=== PATIENT | female | born 1965 | race Caucasian/White ===

== ENCOUNTER 2016-10-26 18:08 | Emergency (ER) ==
[2016-10-26 18:09] VITALS: BMI 38.0
[2016-10-26 18:12] VITALS: BP 144/86; TEMP 97.3
[2016-10-26] MEDS ORDERED: TENIVAC IM ONE (18:20)
[2016-10-26] MEDS ORDERED: LIDOCAINE 1 % AMP 5 ML (SUTURES) SUBCUT STA (18:20)
[2016-10-26 18:42] LABS: SERUM PREGNANCY INTERNAL QC INTERNAL QC VALID
--- NOTE | 2016-10-26 18:51 | ED.PDOC ---
General Stated Complaint: i slipped and fell and hit the curb--i have a cut over the eye Time Seen by Physician: 18:10 Mode of Arrival: Walk-In Information Source: Patient Exam Limitations: No limitations Nursing and Triage Documentation Reviewed and Agree: Yes <CHERISE LEDBETTER - Last Filed: 10/26/16 18:53> <MERISSA RUIZ - Last Filed: 10/26/16 20:11> ED Provider: Dr. MERISSA RUIZ ([facility] (MERISSA RUIZ) Chief Complaint: Fall Primary Care Provider: GEORGES HERNANDEZ ([facility]) (MERISSA RUIZ) Skin Complaint Exam - Laceration/Head/Facial Complaint/Exam Location of Injury: Eyebrow Mechanism of Injury: Laceration Onset/Duration: 4hrs Symptoms Are: Still present Initial Severity: Mild Current Severity: Mild Aggravating: Movement Alleviating: Compression Associated Signs and Symptoms: Denies: Fever, Chills, Erythema, Numbness, Tingling Differential Diagnoses: Laceration <CHERISE LEDBETTER - Last Filed: 10/26/16 18:53> Review of Systems - Review Of Systems Constitutional: Reports: No symptoms Eyes: Reports: No symptoms Ears, Nose, Mouth, Throat: Reports: No symptoms Respiratory: Reports: No symptoms Cardiac: Reports: No symptoms GI: Reports: No symptoms : Reports: No symptoms Musculoskeletal: Reports: No symptoms Skin: Reports: No symptoms Neurological: Reports: No symptoms Endocrine: Reports: No symptoms Hematologic/Lymphatic: Reports: No symptoms All Other Systems: Reviewed and Negative <CHERISE LEDBETTER - Last Filed: 10/26/16 18:53> Past Medical History - Past Medical History Previously Healthy: Yes Endocrine: Reports: None Cardiovascular: Reports: None Respiratory: Reports: None, COPD Hematological: Reports: None Gastrointestinal: Reports: None Genitourinary: Reports: None Neuro/Psych: Reports: Anxiety, Depression Musculoskeletal: Reports: None, Arthritis Cancer: Reports: None Last Menstrual Period: none Other Pertinent Past Medical History: FIBROMYALGA, SOCIAL ANXIETY,CHRONIC FATIGUE - Surgical History General Surgical History: Reports: Orthopedic - Family History Family History: Reports: Unknown - Social History Smoking Status: Current every day smoker, Heavy tobacco smoker Hx Substance Use: No Alcohol Screening: None Lives: With family <CHERISE LEDBETTER - Last Filed: 10/26/16 18:53> Physical Exam - Physical Exam Appearance: Well-appearing, No pain distress, Well-nourished Pain Distress: Mild Eyes: HARSHA, EOMI, Conjunctiva clear ENT: Ears normal, Nose normal, Oropharynx normal Neck: Supple Respiratory: Airway patent Cardiovascular: RRR, Pulses normal, No rub, No murmur GI/: Soft, Nontender, No masses, Bowel sounds normal, No Organomegaly Musculoskeletal: Normal strength, ROM intact, No edema, No calf tenderness Skin: Warm, Dry, Normal color Neurological: Sensation intact, Motor intact, Reflexes intact, Cranial nerves intact, Alert, Oriented Psychiatric: Affect appropriate <CHERISE LEDBETTER Last Filed: 10/26/16 18:53> Interpretation - Radiology Interpretation Radiology Interpretation By: Radiologist Exam Interpreted: CT Scan (rt periorbital hematoma) <MERISSA RUIZ Last Filed: 10/26/16 20:11> Procedures - Laceration/Wound Repair No standard instances Wound Description: Linear Wound Length (cm): 3cm right eyebrow Wound Explored: Clean Wound Irrigated: Yes Wound Prep: Hibiclens Anesthesia: Lidocaine Wound Repaired With: Sutures Suture Size and Type: 5.0 prolene Number of Sutures: 4 Layer Closure?: No Sterile Dressing Applied?: Yes Splint Applied?: No Sling Applied?: No <CHERISE LEDBETTER Last Filed: 10/26/16 18:53> Re-Evaluation - Re-Evaluation Time of Re-Evaluation: 20:09 Status: Improved <MERISSA RUIZ - Last Filed: 10/26/16 20:11> Physician Notification - Case Discussed Physician Notified: dr ruiz Time of Notification: 19:00 <CHERISE LEDBETTER - Last Filed: 10/26/16 18:53> Critical Care Note - Critical Care Note Total Time (mins): 0 <MERISSA RUIZ - Last Filed: 10/26/16 20:11> Departure <CHERISE LEDBETTER - Last Filed: 10/26/16 18:53> - Departure Time of Disposition: 20:11 Pt referred to PMD for follow-up: Yes Disposition Discussed With: Patient, Family <MERISSA RUIZ - Last Filed: 10/26/16 20:11> - Departure Disposition: HOME SELF-CARE Discharge Problem: Head injury Qualifiers: Encounter type: initial encounter Qualifier Code: (S09.90XA) Unspecified injury of head, initial encounter Instructions: Head Injury (ED) Condition: Stable Additional Instructions: eye movements intact and no pain while moving them Tylenol prn If the pain in the eye starts or vision changes needs f/u with eye doctor Allergies/Adverse Reactions: Allergies No Known Allergies Allergy (Verified 10/26/16 18:13) Home Medications: Ambulatory Orders Lorazepam [Ativan] 1 mg PO TID PRN 06/10/15 Tiotropium [place] [Spiriva] 1 cap IA DAILY 12/30/15 Albuterol Sulfate [Proair Hfa] 2 puff IH Q6H 01/05/16 Epinephrine [Epipen Twinpak] 0.3 mg IM DIRECTED PRN 01/05/16 Diclofenac Sodium [Voltaren-Xr] 75 mg PO BID 02/22/16 Venlafaxine HCl [Effexor Xr] 150 mg PO BID 08/29/16
[2016-10-26] MEDS ORDERED: ZOFRAN 4 MG/2 ML IM STA (19:04)
--- NOTE | 2016-10-26 19:35 | CT ---
EXAM: CT of the head without contrast. HISTORY: Head injury. COMPARISON: 01/06/2016 MRI. TECHNIQUE: Noncontrast CT of the head. FINDINGS: There are mild artifacts inferiorly. No intracranial hemorrhage or mass effect is identified. The s ulci and ventricles are normal in size and configuration. No large area of guidry white matter differe ntiation loss is seen. The calvarium is intact. The visualized paranasal sinuses are unopacified. Right periorbital soft tissue swelling and a few punctate foci of subcutaneous gas are seen. IMPRESSION: No evidence of an acute intracranial process. Right periorbital soft tissue swelling and a few punctate foci of subcutaneous gas.
--- NOTE | 2016-10-26 19:40 | CT ---
CT cervical spine without contrast HISTORY: Fall with trauma and pain TECHNIQUE: CT of the cervical spine with multiplanar reformations. FINDINGS: Reformatted images demonstrate normal alignment with preservation of vertebral body heigh t. Focal disc space narrowing and endplate spondylosis at C5-6. No fracture seen on the axial or re formatted images. No acute surrounding soft tissue abnormalitites. Lung apices are clear. IMPRESSION: No acute findings in the cervical spine.
--- NOTE | 2016-10-26 19:42 | CT ---
EXAM: Noncontrast CT of the facial bones HISTORY: Fall COMPARISON: None available TECHNIQUE: Noncontrast CT of the facial bones. FINDINGS: The most inferior aspect the mandible was not entirely imaged. No facial bone fracture is identifie d. The paranasal sinuses are opacified. Right periorbital soft tissue swelling, mild hematoma and a few punctate foci of subcutaneous gas are seen. The globes are unremarkable. There is mild anteri or subluxation of the right mandibular condyle at the TMJ. IMPRESSION: No facial bone fracture identified. Right periorbital mild soft tissue swelling, hematoma and a few punctate foci of subcutaneous gas. Mild anterior subluxation of the right mandibular condyle of the TMJ, possibly positional. Clinical correlation suggested.
== END 2016-10-26 20:21 | disposition home or self-care (01) ==
LOC: ED 18:08
DX: S01.111A Laceration without foreign body of right eyelid and periocular area, initial encounter (principal); S09.90XA Unspecified injury of head, initial encounter; W01.198A Fall on same level from slipping, tripping and stumbling with subsequent striking against other object, initial encounter; F17.210 Nicotine dependence, cigarettes, uncomplicated
CPT/HCPCS: 36415; 84703; 90471; 96372; 99283

== ENCOUNTER 2017-01-22 14:53 | Emergency (ER) ==
[2017-01-22 15:03] VITALS: BP 92/74; TEMP 98; BMI 21.4
[2017-01-22] MEDS ORDERED: DECADRON 4 MG/ML SDV IM STA (15:20)
--- NOTE | 2017-01-22 15:23 | ED.PDOC ---
General ED Provider: Dr. MERISSA RUIZ Chief Complaint: Ankle Pain/Injury Stated Complaint: She woke up with rt ankle red, swollen 4 days ago, but gradually the redness got better now it is still swollen and hurts to walk. Time Seen by Physician: 15:21 Mode of Arrival: Walk-In Information Source: Patient Primary Care Provider: GEORGES HERNANDEZ Nursing and Triage Documentation Reviewed and Agree: Yes Musculoskeletal Complaint Exam - Ankle/Foot Complaint/Exam Location of Injury: Reports: Right Mechanism of Injury: Reports: No known trauma Symptoms Are: Reports: Still present Onset of Pain: Reports: Days Initial Severity: Moderate Current Severity: Moderate Location: Reports: Discrete Character: Reports: Aching, Throbbing Alleviating: Reports: None Aggravating: Reports: Movement, Weight bearing Able to Bear Weight: No Associated Signs and Symptoms: Reports: Swelling, Fever. Denies: Redness, Bruising, Weakness, Numbness, Tingling Gout Risk Factors: Reports: HTN, Obesity Related Surgical History: Reports: None Lower Extremity Findings: Present: Swelling, Erythema, Warmth, Tenderness, Limited range of motion Tenderness: Present: Medial malleolus, Lateral malleolus, Midfoot Differential Diagnosis: Cellulitis, Infection, Closed Fracture, Gout, Sprain Review of Systems - Review Of Systems Constitutional: Reports: No symptoms Eyes: Reports: No symptoms Ears, Nose, Mouth, Throat: Reports: No symptoms Respiratory: Reports: No symptoms Cardiac: Reports: No symptoms GI: Reports: No symptoms : Reports: No symptoms Musculoskeletal: Reports: Gout, Joint pain, Joint swelling, Muscle pain Skin: Reports: No symptoms Neurological: Reports: No symptoms Endocrine: Reports: No symptoms Hematologic/Lymphatic: Reports: No symptoms All Other Systems: Reviewed and Negative Past Medical History - Past Medical History Previously Healthy: Yes Endocrine: Reports: None Cardiovascular: Reports: None Respiratory: Reports: None, COPD Hematological: Reports: None Gastrointestinal: Reports: None Genitourinary: Reports: None Neuro/Psych: Reports: Anxiety, Depression Musculoskeletal: Reports: None, Arthritis Cancer: Reports: None Last Menstrual Period: N/A Other Pertinent Past Medical History: FIBROMYALGA, SOCIAL ANXIETY,CHRONIC FATIGUE - Surgical History General Surgical History: Reports: Orthopedic - Family History Family History: Reports: Unknown - Social History Smoking Status: Current every day smoker, Heavy tobacco smoker, Light tobacco smoker Smoking Cessation Counseling Time: > 3 min - 10 min Hx Substance Use: No Alcohol Screening: Occasionally - Immunizations Tetanus Shot up to Date: Yes Physical Exam - Physical Exam Appearance: Ill-appearing, Obese Eyes: EOMI ENT: Ears normal, Nose normal, Oropharynx normal Respiratory: Airway patent, Breath sounds clear, Breath sounds equal, Respirations nonlabored Cardiovascular: RRR, Pulses normal, No rub, No murmur GI/: Soft, Nontender, No masses, Bowel sounds normal, No Organomegaly Musculoskeletal: Limited ROM, Limited strength Skin: Warm, Dry, Normal color Neurological: Sensation intact, Motor intact, Reflexes intact, Cranial nerves intact, Alert, Oriented Psychiatric: Affect appropriate, Mood appropriate Interpretation - Radiology Interpretation Radiology Interpretation By: ED Physician Radiology Results: Negative Exam Interpreted: CXR Critical Care Note - Critical Care Note Total Time (mins): 0 Course - Course Orders, Labs, Meds: Orders Category Date Time Status Dexamethasone 4 mg/ml Inj [Decadron 4 mg/ml Sdv] MEDS 01/22/17 15:20 Discontinued 4 mg IM ONCE STA ANKLE, RIGHT MIN 3 VIEWS Stat RADS 01/22/17 15:20 Taken Medications Discontinued Medications Generic Name Dose Route Start Last Admin Trade Name Freq PRN Reason Stop Dose Admin Dexamethasone Sodium Phosphate 4 mg 01/22/17 15:20 01/22/17 15:25 Decadron 4 Mg/Ml Sdv IM 01/22/17 15:21 4 mg ONCE STA Administration Vital Signs: Temp Pulse Resp BP Pulse Ox 01/22/17 14:53 98.0 F 83 18 92/74 97 Departure - Departure Time of Disposition: 16:03 Disposition: HOME SELF-CARE Discharge Problem: Cellulitis Qualifiers: Site of cellulitis: extremity Site of cellulitis of extremity: lower extremity Laterality: right Qualifier Code: (L03.115) Cellulitis of right lower limb Acute gout Qualifiers: Gout site: ankle Gout etiology: unspecified cause Laterality: right Qualifier Code: (M10.9) Gout, unspecified Instructions: Cellulitis (ED), Gout (ED) Condition: Stable Pt referred to PMD for follow-up: Yes Additional Instructions: keep leg elevated keep f/u with PMD Prescriptions: Clindamycin HCl 300 mg PO TID #15 capsule Prednisone 10 mg PO BIDWM #14 tablet Allergies/Adverse Reactions: Allergies wasp venom Adverse Reaction (Severe, Uncoded 01/22/17 15:04) Difficulty Breathing Home Medications: Ambulatory Orders Lorazepam [Ativan] 1 mg PO TID PRN 06/10/15 Tiotropium [place] [Spiriva] 1 cap IA DAILY 12/30/15 Albuterol Sulfate [Proair Hfa] 2 puff IH Q6H 01/05/16 Epinephrine [Epipen Twinpak] 0.3 mg IM DIRECTED PRN 01/05/16 Venlafaxine HCl [Effexor Xr] 150 mg PO BID 08/29/16 Clindamycin HCl 300 mg PO TID #15 capsule 01/22/17 Prednisone 10 mg PO BIDWM #14 tablet 01/22/17 Disposition Discussed With: Patient
[2017-01-22] MEDS ORDERED: CLEOCIN PO STA (16:05)
--- NOTE | 2017-01-22 16:09 | DI ---
EXAM: Right ankle. Three view. HISTORY: Right ankle pain. COMPARISON: None. FINDINGS: AP, lateral and oblique views of the right ankle. There are no acute or healing fracture s. There are no lytic or blastic lesions. Soft tissue edema is noted. There is a large plantar spu r. The talar dome is intact. IMPRESSION: 1. No acute fracture. 2. Soft tissue edema. 3. Plantar spur.
== END 2017-01-22 16:13 | disposition home or self-care (01) ==
LOC: ED 14:53
DX: L03.115 Cellulitis of right lower limb (principal); M10.9 Gout, unspecified; I10 Essential (primary) hypertension; E66.9 Obesity, unspecified; F17.210 Nicotine dependence, cigarettes, uncomplicated; Z79.899 Other long term (current) drug therapy
CPT/HCPCS: 96372; 99283

== ENCOUNTER 2017-02-14 10:16 | Emergency (ER) ==
[2017-02-14 10:35] VITALS: BP 126/84; TEMP 98.6; BMI 38.0
--- NOTE | 2017-02-14 11:26 | ED.PDOC ---
General ED Provider: Dr. SERGIO PAN JR Chief Complaint: Non-specific Complaint Stated Complaint: PATIENT WAS SEEN IN THE [facility] YESTERDAY FOR THIS PROBLEM. STATES SHE IS BEING TREATED FOR CELLULITIS. PATIENT C/O PAIN TO ARCHES AND HEELS OF FEET. STATES KNEES ARE SWOLLEN. PATIENT'S LOWER EXT. HAVE MULTIPLE SCRATCHES BUT SKIN COLOR AND TEMP IS NORMAL. PATIENT STATES COLOR AND TEMP IS BETTER BUT PAIN WORSE IS WORSE. PATIENT STATES "IT LOOKS GREAT BUT IS PAINFUL." PATIENT WAS ORIGINALLY SEEN IN THIS ER AND [facility] FOR THIS PROBLEM AND TWICE AT THE CLINIC. THE CLINIC MADE APPOINTMENT WITH A VASCULAR SURGEON FOR TODAY BUT PATIENT STATED SHE WAS UNABLE TO GO. NOW HAS APPOINTMENT ON February[ End ][facility]. STATES SHE DID NOT TAKE THE ADVIL BECAUSE IT HELPS THE SWELLING AND "I WANTED YOU TO SEE WHAT THEY LOOK LIKE."[ End ] Time Seen by Physician: 11:27 Mode of Arrival: Walk-In Information Source: Patient Exam Limitations: No limitations Primary Care Provider: GEORGES HERNANDEZ Nursing and Triage Documentation Reviewed and Agree: No Review of Systems - Review Of Systems Constitutional: Reports: Malaise Eyes: Reports: No symptoms Ears, Nose, Mouth, Throat: Reports: No symptoms Respiratory: Reports: No symptoms Cardiac: Reports: No symptoms, Edema GI: Reports: No symptoms : Reports: No symptoms Musculoskeletal: Reports: Joint pain, Muscle pain Skin: Reports: Lesions, Rash Neurological: Reports: No symptoms Endocrine: Reports: No symptoms Hematologic/Lymphatic: Reports: No symptoms All Other Systems: Other Past Medical History - Past Medical History Previously Healthy: Yes Endocrine: Reports: None, Dyslipidemia Cardiovascular: Reports: None Respiratory: Reports: COPD Hematological: Reports: None Gastrointestinal: Reports: GERD Genitourinary: Reports: None Neuro/Psych: Reports: Migraine (cluster headaches ), Anxiety, Depression, Bipolar Disorder Musculoskeletal: Reports: None, Arthritis Cancer: Reports: None Last Menstrual Period: N/A Other Pertinent Past Medical History: FIBROMYALGA, SOCIAL ANXIETY,CHRONIC FATIGUE - Surgical History General Surgical History: Reports: Orthopedic (LEFT KNEE SURGERY, ), Other ( 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, wisdom teethremoved, hemorrhoid surgery cluster headaches chol copd gerd depr anx bip) - Family History Family History: Reports: Unknown - Social History Smoking Status: Current every day smoker, Heavy tobacco smoker, Light tobacco smoker Hx Substance Use: No Alcohol Screening: Occasionally Physical Exam - Physical Exam Appearance: Ill-appearing Eyes: HARSHA, EOMI, Conjunctiva clear ENT: Ears normal, Nose normal, Oropharynx normal Neck: Supple Respiratory: Airway patent, Breath sounds clear, Breath sounds equal, Respirations nonlabored Cardiovascular: RRR, Pulses normal, No rub, No murmur GI/: Soft, Nontender, No masses, Bowel sounds normal, No Organomegaly Musculoskeletal: Edema Skin: Warm, Dry Neurological: Sensation intact, Motor intact, Alert, Oriented Psychiatric: Affect appropriate, Mood appropriate Critical Care Note - Critical Care Note Total Time (mins): 0 Course - Course Vital Signs: Temp Pulse Resp BP Pulse Ox 02/14/17 10:17 98.6 F 92 H 16 126/84 95 Departure - Departure Time of Disposition: 11:44 Disposition: HOME SELF-CARE Discharge Problem: Pruritic rash, Cellulitis Instructions: Cellulitis (ED), Peripheral Vascular Disease (ED) Condition: Good Pt referred to PMD for follow-up: Yes Additional Instructions: follow up vascular surgery as planned elevate feet 2 hours twice a day ibuprofen for pain and swelling would change from antibacterial ointment to desitin for skin irritation may try Vitamin A&D ointment instead of desitin ointment call PMD if fever over 101.0 or if worse follow up Monday as planned Prescriptions: Ibuprofen [Motrin] 600 mg PO QID PRN #30 tablet PRN Reason: PAIN Zinc Oxide [Desitin] 1 applic TP BID PRN #120 cream..g. PRN Reason: irritation Allergies/Adverse Reactions: Allergies latex Adverse Reaction (Verified 02/14/17 10:36) wasp venom Adverse Reaction (Severe, Uncoded 01/22/17 15:04) Difficulty Breathing TAPE Adverse Reaction (Uncoded 02/14/17 10:36) Home Medications: Ambulatory Orders Tiotropium [place] [Spiriva] 1 cap IA DAILY 12/30/15 Albuterol Sulfate [Proair Hfa] 2 puff IH Q6H 01/05/16 Epinephrine [Epipen Twinpak] 0.3 mg IM DIRECTED PRN 01/05/16 Venlafaxine HCl [Effexor Xr] 150 mg PO BID 08/29/16 Baclofen 10 mg PO TID 02/14/17 Ibuprofen [Motrin] 600 mg PO QID PRN #30 tablet 02/14/17 Levofloxacin [Levaquin] 500 mg PO QDAC 02/14/17 Zinc Oxide [Desitin] 1 applic TP BID PRN #120 cream..g. 02/14/17
== END 2017-02-14 12:22 | disposition home or self-care (01) ==
LOC: ED 10:16
DX: L03.116 Cellulitis of left lower limb (principal); L03.115 Cellulitis of right lower limb; R21 Rash and other nonspecific skin eruption; L29.9 Pruritus, unspecified; M79.672 Pain in left foot; M79.671 Pain in right foot; F17.210 Nicotine dependence, cigarettes, uncomplicated
CPT/HCPCS: 99282

== ENCOUNTER 2017-10-14 17:55 | Emergency (ER) ==
[2017-10-14 17:55] VITALS: BMI 38.0
[2017-10-14 18:01] VITALS: BP 164/102; TEMP 98.7
[2017-10-14] MEDS ORDERED: DUONEB NEB STA (18:13)
[2017-10-14] MEDS ORDERED: SOLU-MEDROL 125 MG IVP STA (18:14)
[2017-10-14] MEDS ORDERED: SOLU-MEDROL 40 MG IVP STA (18:20)
--- NOTE | 2017-10-14 18:36 | ED.PDOC ---
General <CHERISE LEDBETTER - Last Filed: 10/14/17 21:05> Stated Complaint: SHORTNESS OF BREATH Time Seen by Physician: 18:00 Mode of Arrival: Walk-In Information Source: Patient Exam Limitations: No limitations Nursing and Triage Documentation Reviewed and Agree: Yes Reviewed sepsis parameters & appropriate labs ordered?: Yes System Inflammatory Response Syndrome: Not Applicable <BRENDAN BISHOP - Last Filed: 10/17/17 09:59> ED Provider: Dr. BRENDAN BISHOP Chief Complaint: Shortness of Air Sepsis Protocol: For patient's 13 years and over: Temp is 96.8 and below OR 101 and greater Pulse >90 BPM Resp >20/minute Acutely Altered Mental Status Are patient's symptoms suggestive of a new infection, such as: -Pneumonia -Skin, Soft Tissue -Endocarditis -UTI -Bone, Joint Infection -Implantable Device -Acute Abdominal Infection -Wound Infection -Meningitis -Blood Stream Catheter Infection -Unknown Respiratory Complaint Exam - Shortness of Air Complaint/Exam Onset/Duration: 4 DAY Symptoms Are: Still present Timing: Constant Initial Severity: Moderate Current Severity: Moderate Character: Reports: Dyspnea at rest, Dyspnea on exertion, Orthopnea Aggravating: Reports: Deep breaths, URI, Weather Alleviating: Reports: Bronchodilators, Upright position Associated Signs and Symptoms: Reports: Cough, Nasal congestion. Denies: Wheezing, Chest pain with cough, Chest pain, Fever, Chills, Diaphoresis, Dizziness, Calf pain, Calf swelling, Edema, Rapid breathing, Labored breathing, Decreased intake Related History: Reports: Similar episode History of Healthcare-Acquired Pneumonia: No Pulmonary Embolism Risk Factors: Reports: Smoking Pseudomonas Risk Factors: Reports: None Tuberculosis Risk Factors: Reports: None Home Oxygen Use: No Recent Stress Test: No Recent Echo/LV Function: No Respiratory Distress: None Stridor Present: No Tracheal Deviation: No Subcutaneous Emphysema: No Accessory Muscle Use: No Retractions: Not Present Diminished Breath Sounds: Yes (ALL REGIONS) Prolonged Expiratory Phase: Yes Unable to Speak Full Sentences: No Fatigue: No Leg Swelling: No Kevin's Sign Present: No Grunting Respirations: No Kussmaul Respirations: No Differential Diagnoses: CHF, Pneumonia, Bronchitis, URI Quality Indicators for AMI: EKG in 10min. Quality Indicators for Cardiac Chest Pain: EKG in 10min. <BRENDAN BISHOP - Last Filed: 10/17/17 09:59> Review of Systems - Review Of Systems Constitutional: Reports: Malaise, Weakness, Loss of appetite Eyes: Reports: No symptoms Ears, Nose, Mouth, Throat: Reports: No symptoms Respiratory: Reports: Cough, Short of air, Wheezing Cardiac: Reports: No symptoms GI: Reports: No symptoms : Reports: No symptoms Musculoskeletal: Reports: No symptoms Skin: Reports: No symptoms Neurological: Reports: No symptoms Endocrine: Reports: No symptoms Hematologic/Lymphatic: Reports: No symptoms All Other Systems: Reviewed and Negative <DARIOBRENDAN Last Filed: 10/17/17 09:59> Past Medical History - Past Medical History Previously Healthy: Yes Endocrine: Reports: None, Dyslipidemia Cardiovascular: Reports: None Respiratory: Reports: COPD Hematological: Reports: None Gastrointestinal: Reports: GERD Genitourinary: Reports: None Neuro/Psych: Reports: Migraine (cluster headaches ), Anxiety, Depression, Bipolar Disorder Musculoskeletal: Reports: None, Arthritis Cancer: Reports: None Last Menstrual Period: n/a Other Pertinent Past Medical History: FIBROMYALGA, SOCIAL ANXIETY,CHRONIC FATIGUE - Surgical History General Surgical History: Reports: Orthopedic (LEFT KNEE SURGERY, ), Other ( 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, wisdom teethremoved, hemorrhoid surgery cluster headaches chol copd gerd depr anx bip) - Family History Family History: Reports: Unknown - Social History Smoking Status: Current every day smoker, Heavy tobacco smoker, Light tobacco smoker Hx Substance Use: No Alcohol Screening: Occasionally - Immunizations Tetanus Shot up to Date: Yes <DARIOBRENDAN Filed: 10/17/17 09:59> Physical Exam - Physical Exam Appearance: Ill-appearing Eyes: HARSHA, EOMI, Conjunctiva clear ENT: Ears normal, Nose normal, Oropharynx normal Respiratory: Breath sounds diminished, Rhonchi, Wheezes Cardiovascular: RRR, Pulses normal, No rub, No murmur GI/: Soft, Nontender, No masses, Bowel sounds normal, No Organomegaly Musculoskeletal: Normal strength, ROM intact, No edema, No calf tenderness Skin: Warm, Dry, Normal color Neurological: Sensation intact, Motor intact, Reflexes intact, Cranial nerves intact, Alert, Oriented Psychiatric: Affect appropriate, Mood appropriate <DARIOBRENDAN Filed: 10/17/17 09:59> 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 Rate: Tachy Rhythm: Sinus - EKG Interpretation Rate: Tachy (INCOMPLETE RIGHT BUNDLE BRANCH) Rhythm: Sinus Ectopy: None Stuart: NL ST Segment: Normal <BRENDAN BISHOP - Last Filed: 10/17/17 09:59> Re-Evaluation - Re-Evaluation Status: Improved Vital Signs Stable: Yes Pain Level: 1 Lungs: Clear Skin: Warm and Dry Neuro: Alert and Oriented X3 CV: RRR <ANATOLYCHERISE - Last Filed: 10/14/17 21:05> Physician Notification - Case Discussed Physician Notified: dr lisa --[facility] Time of Notification: 21:05 <GLADISELOYCHERISE - Last Filed: 10/14/17 21:05> Critical Care Note - Critical Care Note Total Time (mins): 45 <ANATOLYCHERISE - Last Filed: 10/14/17 21:05> - Critical Care Note Total Time (mins): 0 <MARIBELMATTBRENDAN - Last Filed: 10/17/17 09:59> Course - Course Hematology/Chemistry: 10/14/17 18:34 10/14/17 18:34 <GLADISAngelaJULIETCHERISE - Last Filed: 10/14/17 21:05> - Course Hematology/Chemistry: 10/14/17 18:34 10/14/17 18:34 <MARIBELMATTBRENDAN - Last Filed: 10/17/17 09:59> - Course Orders, Labs, Meds: Lab Review 10/14/17 10/14/17 10/14/17 18:29 18:30 18:34 WBC 11.19 H RBC 4.73 Hgb 15.1 Hct 44.8 MCV 94.7 MCH 31.9 H MCHC 33.7 RDW Coeff of Abner 14.0 Plt Count 234 Immature Gran % (Auto) 0.4 Neut % (Auto) 69.5 Lymph % (Auto) 20.7 [place] % (Auto) 8.0 Eos % (Auto) 1.0 Baso % (Auto) 0.4 Immature Gran # (Auto) 0.0 Neut # 7.8 H Lymph # 2.3 [place] # 0.9 Eos # 0.1 Baso # 0.0 D-Dimer (Manual) Puncture Site Rrad O2 Saturation 91.0 L ABG pH 7.446 ABG pCO2 34.6 L ABG pO2 58.0 L* ABG HCO3 23.8 ABG Total CO2 25 ABG Base Excess 0 Candido Test + FiO2 % 21.0 Sodium Potassium Chloride Carbon Dioxide Anion Gap BUN Creatinine Estimated GFR (MDRD) BUN/Creatinine Ratio Glucose Lactic Acid Calcium Total Bilirubin AST ALT Alkaline Phosphatase B-Natriuretic Peptide Total Protein Albumin Globulin Albumin/Globulin Ratio Procalcitonin Influenza A (Rapid) Negative Influenza B (Rapid) Negative 10/14/17 10/14/17 10/14/17 18:34 18:34 18:34 WBC RBC Hgb Hct MCV MCH MCHC RDW Coeff of Abner Plt Count Immature Gran % (Auto) Neut % (Auto) Lymph % (Auto) [place] % (Auto) Eos % (Auto) Baso % (Auto) Immature Gran # (Auto) Neut # Lymph # [place] # Eos # Baso # D-Dimer (Manual) 4364.52 Puncture Site O2 Saturation ABG pH ABG pCO2 ABG pO2 ABG HCO3 ABG Total CO2 ABG Base Excess Candido Test FiO2 % Sodium 140 Potassium 3.8 Chloride 104 Carbon Dioxide 23 Anion Gap 16.8 BUN 5 L Creatinine 0.69 Estimated GFR (MDRD) 89.00 BUN/Creatinine Ratio 7.24 Glucose 111 H Lactic Acid Calcium 9.7 Total Bilirubin 0.5 AST 13 L ALT 19 Alkaline Phosphatase 122 H B-Natriuretic Peptide 183 H Total Protein 8.0 Albumin 3.3 L Globulin 4.7 Albumin/Globulin Ratio 0.70 Procalcitonin Influenza A (Rapid) Influenza B (Rapid) 10/14/17 10/14/17 18:34 18:45 WBC RBC Hgb Hct MCV MCH MCHC RDW Coeff of Abner Plt Count Immature Gran % (Auto) Neut % (Auto) Lymph % (Auto) [place] % (Auto) Eos % (Auto) Baso % (Auto) Immature Gran # (Auto) Neut # Lymph # [place] # Eos # Baso # D-Dimer (Manual) Puncture Site O2 Saturation ABG pH ABG pCO2 ABG pO2 ABG HCO3 ABG Total CO2 ABG Base Excess Candido Test FiO2 % Sodium Potassium Chloride Carbon Dioxide Anion Gap BUN Creatinine Estimated GFR (MDRD) BUN/Creatinine Ratio Glucose Lactic Acid 11.2 Calcium Total Bilirubin AST ALT Alkaline Phosphatase B-Natriuretic Peptide Total Protein Albumin Globulin Albumin/Globulin Ratio Procalcitonin < 0.05 Influenza A (Rapid) Influenza B (Rapid) Orders Category Date Time Status ABG DRAW REQUEST Stat CARDIO 10/14/17 18:29 Completed EKG-(ED ONLY) Stat CARDIO 10/14/17 18:13 Completed NEBULIZER TREATMENT Stat CARDIO 10/14/17 18:13 Completed NPO REMINDER: IMAGING ONCE CARE 10/14/17 18:40 Completed TRANSFER TO OUTSIDE FACILITY .TO [facility] 10/14/17 21:06 Active ([place]) WRITE TRANSFER/SBAR NOTE ONCE CARE 10/14/17 21:06 Active DISCHARGE ASSESSMENT ONCE DISCHARGE 10/14/17 21:06 Active WRITE DISCHARGE NOTE ONCE DISCHARGE 10/14/17 21:06 Active ED IV/MEDIPORT/POWERPORT .ONCE EMERGENCY 10/14/17 18:13 Active ABG Stat LAB 10/14/17 18:29 Completed B-TYPE NATRIURETIC PEPTIDE Stat LAB 10/14/17 18:34 Completed BLOOD CULTURE (ED ONLY) Stat LAB 10/14/17 18:45 Results CBC W/ AUTO DIFF Stat LAB 10/14/17 18:34 Completed COMPREHENSIVE METABOLIC PANEL Stat LAB 10/14/17 18:34 Completed D-DIMER Stat LAB 10/14/17 18:34 Completed LACTIC ACID Stat LAB 10/14/17 18:45 Completed MOLECULAR GROUP A STREP Stat LAB 10/14/17 18:30 Completed PROCALCITONIN Stat LAB 10/14/17 18:34 Completed RAPID FLU A/B Stat LAB 10/14/17 18:30 Completed STREP SCREEN Stat LAB 10/14/17 18:30 Completed 0.9 % Sodium Chloride [Saline Flush] MEDS 10/14/17 18:13 Discontinued 1 syr IVF PRN PRN Ceftriaxone Sodium [Rocephin] MEDS 10/14/17 19:10 Discontinued 1 gm .ROUTE .STK-MED ONE Ceftriaxone Sodium [Rocephin] 1 gm MEDS 10/14/17 18:40 Discontinued 0.9 % Sodium Chloride [Sodium Chloride] 50 ml IV ONCE Enoxaparin Sodium [Lovenox] MEDS 10/14/17 21:02 Discontinued 114 mg SUBCUT ONCE STA Ipratropium/Albuterol Neb [Duoneb] MEDS 10/14/17 18:13 Discontinued 1 vial NEB ONCE STA Lorazepam [Ativan] MEDS 10/14/17 18:54 Discontinued 0.5 mg PO ONCE STA Methylprednisolone Sod Succ/Pf [Solu-Medrol 40 mg] MEDS 10/14/17 18:20 Discontinued 40 mg IVP ONCE STA Morphine Sulfate [Morphine 10 mg/ml Syringe] MEDS 10/14/17 20:51 Discontinued 10 mg IVP ONCE STA Morphine Sulfate [Morphine 2 mg/ml Syringe] MEDS 10/14/17 20:52 Discontinued 2 mg IVP ONCE STA CT CHEST PE PROTOCOL Stat RADS 10/14/17 18:[address] CHEST W/O CONTRAST Stat RADS 10/14/17 18:15 Completed Medications Discontinued Medications Generic Name Dose Route Start Last Admin Trade Name Freq PRN Reason Stop Dose Admin Albuterol/Ipratropium 1 vial 10/14/17 18:13 10/14/17 18:27 Duoneb NEB 10/14/17 18:14 1 vial ONCE STA Administration Enoxaparin Sodium 114 mg 10/14/17 21:02 10/14/17 21:13 Lovenox SUBCUT 10/14/17 21:03 114 mg ONCE STA Administration Ceftriaxone Sodium 1 gm/ 50 mls @ 75 mls/hr 10/14/17 18:40 10/14/17 19:20 Sodium Chloride IV 10/14/17 19:19 75 mls/hr ONCE STA Administration Lorazepam 0.5 mg 10/14/17 18:54 10/14/17 18:59 Ativan PO 10/14/17 18:55 0.5 mg ONCE STA Administration Methylprednisolone Sodium Succinate 40 mg 10/14/17 18:20 10/14/17 18:28 Solu-Medrol 40 Mg IVP 10/14/17 18:21 40 mg ONCE STA Administration Morphine Sulfate 10 mg 10/14/17 20:51 10/14/17 20:53 Morphine 10 Mg/Ml Syringe IVP 10/14/17 20:52 Not Given ONCE STA Morphine Sulfate 2 mg 10/14/17 20:52 10/14/17 21:00 Morphine 2 Mg/Ml Syringe IVP 10/14/17 20:53 2 mg ONCE STA Administration Sodium Chloride 1 syr 10/14/17 18:13 10/14/17 19:20 Saline Flush IVF 1 syr PRN PRN Administration To flush IV Vital Signs: Temp Pulse Resp BP Pulse Ox 10/14/17 17:55 98.7 F 110 H 24 164/102 H 95 Departure - Departure Time of Disposition: 21:05 Pt referred to PMD for follow-up: Yes Transfer Form Completed: Yes Disposition Discussed With: Patient <CHERISE LEDBETTER - Last Filed: 10/14/17 21:05> - Departure Pt referred to PMD for follow-up: Yes Disposition Discussed With: Patient <BRENDAN BISHOP - Last Filed: 10/17/17 09:59> - Departure Disposition: TSF SHORT-TRM HOSP Discharge Problem: Pulmonary embolism Qualifiers: Pulmonary embolism type: saddle Chronicity: acute Acute cor pulmonale presence : without acute cor pulmonale Qualified Code(s): I26.92 - Saddle embolus of pulmonary artery without acute cor pulmonale Instructions: COPD (Chronic Obstructive Pulmonary Disease) (ED), Chronic Cough (ED), Cold Symptoms (ED) Condition: Good Additional Instructions: Please call your Family Physician as soon as possible to schedule a follow-up appointment. Allergies/Adverse Reactions: Allergies latex Adverse Reaction (Verified 02/14/17 10:36) wasp venom Adverse Reaction (Severe, Uncoded 01/22/17 15:04) Difficulty Breathing TAPE Adverse Reaction (Uncoded 02/14/17 10:36) Home Medications: Ambulatory Orders Tiotropium [place] [Spiriva] 1 cap IA DAILY 12/30/15 Albuterol Sulfate [Proair Hfa] 2 puff IH Q6H 01/05/16 Epinephrine [Epipen Twinpak] 0.3 mg IM DIRECTED PRN 01/05/16 Venlafaxine HCl [Effexor Xr] 150 mg PO BID 08/29/16 Baclofen 10 mg PO TID 02/14/17 Ibuprofen [Motrin] 600 mg PO QID PRN #30 tablet 02/14/17 Levofloxacin [Levaquin] 500 mg PO QDAC 02/14/17 Zinc Oxide [Desitin] 1 applic TP BID PRN #120 cream..g. 02/14/17
[2017-10-14] MEDS ORDERED: ROCEPHIN 1 GM in SODIUM CHLORIDE 50 ML IV STA (18:40)
--- NOTE | 2017-10-14 18:42 | CT ---
EXAM: CT of the chest without contrast History: Cough, short of breath Technique: Multiplanar CT images through the thorax were obtained without the administration of IV c ontrast. Findings: Heart size is normal. No pericardial effusion. Great vessels are unremarkable. Coronary calcifications. No axillary adenopathy. No mediastinal lymphadenopathy. Benign calcified hilar ly mph nodes. 1.6 cm left upper lobe lung nodule. 0.6 cm nodule within the superior segment of the rig ht lower lobe. No pleural fluid and no pneumothorax. Within the visualized upper abdomen, calcified granulomas within the spleen. No acute osseous abnorm alities. Degenerative disc disease within the spine. Impression: 1. 1.6 cm left upper lobe nodule could be infectious/inflammatory or neoplastic etiology. Further ev aluation can be obtained with PET CT or tissue sampling or at least a follow-up chest CT in 3 months. 2. 0.6 cm right lower lobe nodule. Recommend follow-up chest CT in 6 months. 3. Coronary artery disease
[2017-10-14] MEDS ORDERED: ATIVAN PO STA (18:54)
[2017-10-14] MEDS ORDERED: ROCEPHIN ONE (19:10)
--- NOTE | 2017-10-14 20:31 | CT ---
EXAM: CTA of the chest. History: Short of breath Comparison: Chest CT 10/14/2017 Technique: Multiplanar CT images through the thorax were obtained following administration of IV con trast. MIP images and 3-D reconstructions were also acquired. Findings: Heart size is normal. No pericardial effusion. Great vessels are unremarkable. Stable bi lateral lung nodules as previously described. There is of subsegmental atelectasis again noted. A s addle pulmonary embolus identified. Heavy burden of pulmonary arterial thrombus is seen bilaterally and more significant on the left. No pleural fluid and no pneumothorax. Within the visualized upper abdomen, no acute findings. Visualized osseous structures unchanged with no acute osseous abnormalities identified. Impression: 1. Acute bilateral pulmonary emboli with saddle embolus. 2. No change in the bilateral lung nodules. Follow-up as previously described. Critical results communicated to Dr. Delgado at 8:25 p.m. 10/14/2017
[2017-10-14] MEDS ORDERED: MORPHINE 10 MG/ML SYRINGE IVP STA (20:51)
[2017-10-14] MEDS ORDERED: MORPHINE 2 MG/ML SYRINGE IVP STA (20:52)
[2017-10-14] MEDS ORDERED: LOVENOX SUBCUT STA (21:02)
== END 2017-10-14 22:00 | disposition short-term general hospital (02) ==
LOC: ED 17:55
DX: I26.92 Saddle embolus of pulmonary artery without acute cor pulmonale (principal); R06.02 Shortness of breath; R00.0 Tachycardia, unspecified; J44.9 Chronic obstructive pulmonary disease, unspecified; F17.210 Nicotine dependence, cigarettes, uncomplicated
CPT/HCPCS: 36415; 80053; 82803; 83605; 83880; 84145; 85025; 85379; 87040; 87502; 87651; 87880; 93005; 93010; 94640; 96365; 96366; 96372; 96375; 99285

== ENCOUNTER 2018-02-05 22:12 | Emergency (ER) ==
[2018-02-05 22:29] VITALS: BP 114/79; TEMP 98.5; BMI 34.9
[2018-02-05] MEDS ORDERED: PHENERGAN 25 MG/ML VIAL IM STA (22:47)
[2018-02-05] MEDS ORDERED: DEMEROL 50 MG/ML VIAL IM STA (22:47)
--- NOTE | 2018-02-05 22:48 | ED.PDOC ---
General ED Provider: Dr. SAÚL OLIVAS Chief Complaint: Back Pain Stated Complaint: Patient is a 52 year old female who comes to the ER who comes to the ER with lower back pain on the right that started when she bent over and stood back to pull her hair up. Also has some numbness to radiating on the right leg going down close to the knee. Unable to stand up straight Time Seen by Physician: 22:47 Mode of Arrival: Wheelchair Information Source: Patient Primary Care Provider: STEFANY JONES Seen Within Last 72 Hours for Same Complaint By: ED Nursing and Triage Documentation Reviewed and Agree: Yes Reviewed sepsis parameters & appropriate labs ordered?: No System Inflammatory Response Syndrome: Not Applicable Sepsis Protocol: For patient's 13 years and over: Temp is 96.8 and below OR 101 and greater Pulse >90 BPM Resp >20/minute Acutely Altered Mental Status Are patient's symptoms suggestive of a new infection, such as: -Pneumonia -Skin, Soft Tissue -Endocarditis -UTI -Bone, Joint Infection -Implantable Device -Acute Abdominal Infection -Wound Infection -Meningitis -Blood Stream Catheter Infection -Unknown System Inflammatory Response Syndrome: Not Applicable Musculoskeletal Complaint Exam - Back Pain Complaint/Exam Mechanism of Injury: Reports: Trauma (Twisting injury ) Onset/Duration: 2 hours Symptoms Are: Still present Timing: Constant Initial Severity: Moderate Current Severity: Moderate Location: Reports: Diffuse Character: Reports: Aching, Throbbing, Spasmodic Aggravating: Reports: Movements, Bending, Walking Associated Signs and Symptoms: Denies: Swelling, Redness, Bruising, Fever, Weakness, Numbness, Tingling, Abdominal pain, Flank pain, Bladder incontinence, Bowel incontinence, Weight loss, Pain with weight bearing TAD Risk Factors: Reports: None AAA Risk Factors: Reports: None Cauda Equina Risk Factors: Reports: None Epidural Abcess Risk Factors: Reports: None Related Surgical History: Reports: None Focal Tenderness: Yes Paraspinal Muscle Tenderness: Yes Paraspinal Muscle Spasm: Yes Scoliosis: No Lordosis: No Kyphosis: No SLR Test: Right Positive, Left Positive Focal Weakness: Present: None Focal Sensory Loss: Present: None Gait: Present: Abnormal (due to pain ) Back Picture: 1 - pain and tenderness 2 - radiation Review of Systems - Review Of Systems Constitutional: Reports: No symptoms Musculoskeletal: Reports: Back pain All Other Systems: Reviewed and Negative Past Medical History - Past Medical History Previously Healthy: Yes Endocrine: Reports: Dyslipidemia Cardiovascular: Reports: None Respiratory: Reports: COPD Hematological: Reports: None Gastrointestinal: Reports: GERD Genitourinary: Reports: None Neuro/Psych: Reports: Migraine (cluster headaches ), Anxiety, Depression, Bipolar Disorder Musculoskeletal: Reports: None, Arthritis Cancer: Reports: None Last Menstrual Period: BEEN BLEEDING OFF AND ON SINCE IUD REMOVAL IN SEP 2017, NEW ONE INSERTED TO Other Pertinent Past Medical History: FIBROMYALGA, SOCIAL ANXIETY,CHRONIC FATIGUE - Surgical History General Surgical History: Reports: Orthopedic (LEFT KNEE SURGERY, ), Other ( 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, wisdom teethremoved, hemorrhoid surgery cluster headaches chol copd gerd depr anx bip) - Family History Family History: Reports: Unknown - Social History Smoking Status: Unknown if ever smoked Hx Substance Use: No (MARIJUANA OCCASIONALLY) Alcohol Screening: Occasionally - Immunizations Tetanus Shot up to Date: Yes Physical Exam - Physical Exam Appearance: Ill-appearing, Obese Pain Distress: Severe Eyes: HARSHA, EOMI Respiratory: Airway patent, Breath sounds clear, Breath sounds equal, Respirations nonlabored Cardiovascular: RRR, Pulses normal, No rub, No murmur GI/: Soft, Nontender, No masses, Bowel sounds normal, No Organomegaly Musculoskeletal: Normal strength, No edema, No calf tenderness, Limited ROM Skin: Warm, Dry, Normal color Neurological: Sensation intact, Motor intact, Reflexes intact, Cranial nerves intact, Alert, Oriented Psychiatric: Affect appropriate, Mood appropriate Critical Care Note - Critical Care Note Total Time (mins): 0 Course - Course Orders, Labs, Meds: Orders Category Date Time Status Meperidine HCl/Pf [Demerol 50 mg/ml Vial] MEDS 02/05/18 22:47 Discontinued 50 mg IM ONCE STA Promethazine HCl [Phenergan 25 mg/ml Vial] MEDS 02/05/18 22:47 Discontinued 25 mg IM ONCE STA CT LUMBAR SPINE W/O CONTRAST Stat RADS 02/05/18 23:13 Ordered Medications Discontinued Medications Generic Name Dose Route Start Last Admin Trade Name Freq PRN Reason Stop Dose Admin Meperidine HCl 50 mg 02/05/18 22:47 02/05/18 23:25 Demerol 50 Mg/Ml Vial IM 02/05/18 22:48 50 mg ONCE STA Administration Promethazine HCl 25 mg 02/05/18 22:47 02/05/18 23:27 Phenergan 25 Mg/Ml Vial IM 02/05/18 22:48 25 mg ONCE STA Administration Vital Signs: Temp Pulse Resp BP Pulse Ox 02/05/18 22:13 98.5 F 89 20 114/79 96 Departure - Departure Time of Disposition: 00:31 Disposition: HOME SELF-CARE Discharge Problem: Backache, Lumbar radicular syndrome Instructions: Lumbar Radiculopathy (ED) Condition: Fair Pt referred to PMD for follow-up: Yes IPMP verified?: No Additional Instructions: Take medications as prescribed Follow up with PCP in 3 days. Allergies/Adverse Reactions: Allergies latex Adverse Reaction (Verified 02/14/17 10:36) wasp venom Adverse Reaction (Severe, Uncoded 01/22/17 15:04) Difficulty Breathing KOBAN Adverse Reaction (Uncoded 02/05/18 22:31) Rash TAPE Adverse Reaction (Uncoded 02/14/17 10:36) Home Medications: Ambulatory Orders Tiotropium [place] [Spiriva] 1 cap IA DAILY 12/30/15 Albuterol Sulfate [Proair Hfa] 2 puff IH Q6H PRN 01/05/16 Epinephrine [Epipen Twinpak] 0.3 mg IM DIRECTED PRN 01/05/16 Venlafaxine HCl [Effexor Xr] 150 mg PO BID 08/29/16 Ibuprofen [Motrin] 600 mg PO QID PRN #30 tablet 02/14/17 Budesonide/Formoterol Fumarate [Symbicort 80-4.5 Mcg Inhaler] 10.2 gm IH BID Gabapentin 600 mg PO TID 01/04/18 Lorazepam 1 mg PO BID PRN 01/04/18 Oxcarbazepine 600 mg PO TID 01/04/18 Rivaroxaban [Xarelto] 20 mg PO DAILY 01/04/18 Cholecalciferol (Vitamin D3) [Vitamin D] 50,000 unit PO DIRECTED 02/05/18 Mirabegron [Myrbetriq] 50 mg PO DAILY 02/05/18 Pantoprazole Sodium 40 mg PO DAILY 02/05/18 Tizanidine HCl 4 mg PO TID PRN 02/05/18 Valacyclovir HCl [Valacyclovir] 500 mg PO Q12H PRN 02/05/18
--- NOTE | 2018-02-06 00:22 | CT ---
EXAM: CT lumbar spine without intravenous contrast 02/05/2018. Sagittal and coronal reformatted [place] ges obtained HISTORY: Severe lower back pain with radiculopathy COMPARISON: The MRI 09/16/2011 FINDINGS: Anatomic line is stable. Vertebral bodies appear intact that evidence of acute fracture. The facet joints align normally. Posterior disc bulge causes flattening of the thecal sac at the levels of L2-L3, L3-L4, L4-L5 and L5- S1. Narrowing of the spinal canal appears most severe at L3-L4. Multilevel neural foraminal narrowing. Mild bilateral neural foraminal stenosis at L3-L4. Moderate left neural foraminal stenosis at L5-S1. There is severe loss of intervertebral disc height at L4-L5 with severe degenerative endplate change. IMPRESSION: 1. Chronic degenerative changes of the lumbar spine as described above. 2. No acute osseous abnormality 3. Follow-up outpatient MRI could be considered for further characterization.
== END 2018-02-06 00:49 | disposition home or self-care (01) ==
LOC: ED 22:12
DX: M54.16 Radiculopathy, lumbar region (principal); X50.1XXA Overexertion from prolonged static or awkward postures, initial encounter
CPT/HCPCS: 96372; 99283

== ENCOUNTER 2018-02-21 10:20 | Emergency (ER) ==
[2018-02-21 10:27] VITALS: BP 127/86; TEMP 98.4; BMI 33.0
[2018-02-21] MEDS ORDERED: LIDOCAINE HCL 1% SDV IM STA (10:44)
[2018-02-21] MEDS ORDERED: ROCEPHIN IM STA (10:44)
--- NOTE | 2018-02-21 10:44 | ED.PDOC ---
General ED Provider: Dr. BRENDAN BISHOP Chief Complaint: Sore Throat Stated Complaint: sore throat Time Seen by Physician: 10:30 Mode of Arrival: Walk-In Information Source: Patient Exam Limitations: No limitations Primary Care Provider: STEFANY JONES Nursing and Triage Documentation Reviewed and Agree: Yes Reviewed sepsis parameters & appropriate labs ordered?: Yes System Inflammatory Response Syndrome: Not Applicable Sepsis Protocol: For patient's 13 years and over: Temp is 96.8 and below OR 101 and greater Pulse >90 BPM Resp >20/minute Acutely Altered Mental Status Are patient's symptoms suggestive of a new infection, such as: -Pneumonia -Skin, Soft Tissue -Endocarditis -UTI -Bone, Joint Infection -Implantable Device -Acute Abdominal Infection -Wound Infection -Meningitis -Blood Stream Catheter Infection -Unknown System Inflammatory Response Syndrome: Not Applicable EENT Complaint Exam - Throat Complaint/Exam Onset/Duration: 2 days Symptoms Are: Still present Timimg: Constant Initial Severity: Moderate Current Severity: Moderate Aggravating: Reports: Eating Alleviating: Reports: None Associated Signs and Symptoms: Reports: Cough, Nasal congestion. Denies: Dysphagia, Drooling, Foreign body sensation, Wheezing, Hoarseness, Sinus discomfort Uvula Midline: Yes Viri-tonsillar Fluctuence: No Scarlatinaform Rash Present: No Stridor Present: No Sinus Tenderness Present: No Tonsillar Hypertrophy Present: No Tonsillar Exudate Present: No Viri-tonsillar Swelling Present: No Adenopathy Present: No Splenomegaly Present: No Differential Diagnoses: Pharyngitis Review of Systems - Review Of Systems Constitutional: Reports: No symptoms Eyes: Reports: No symptoms Ears, Nose, Mouth, Throat: Reports: Throat pain Respiratory: Reports: No symptoms Cardiac: Reports: No symptoms GI: Reports: No symptoms : Reports: No symptoms Musculoskeletal: Reports: No symptoms Skin: Reports: No symptoms Neurological: Reports: No symptoms Endocrine: Reports: No symptoms Hematologic/Lymphatic: Reports: No symptoms All Other Systems: Reviewed and Negative Past Medical History - Past Medical History Previously Healthy: Yes Endocrine: Reports: Dyslipidemia Cardiovascular: Reports: None Respiratory: Reports: COPD Hematological: Reports: None Gastrointestinal: Reports: GERD Genitourinary: Reports: None Neuro/Psych: Reports: Migraine (cluster headaches ), Anxiety, Depression, Bipolar Disorder Musculoskeletal: Reports: None, Arthritis Cancer: Reports: None Last Menstrual Period: 12 yrs ago--has iud Other Pertinent Past Medical History: FIBROMYALGA, SOCIAL ANXIETY,CHRONIC FATIGUE - Surgical History General Surgical History: Reports: Orthopedic (LEFT KNEE SURGERY, ), Other ( 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, wisdom teethremoved, hemorrhoid surgery cluster headaches chol copd gerd depr anx bip) - Family History Family History: Reports: Unknown - Social History Smoking Status: Current every day smoker, Light tobacco smoker Hx Substance Use: No (MARIJUANA OCCASIONALLY) Alcohol Screening: Occasionally Physical Exam - Physical Exam Appearance: Well-appearing, No pain distress, Well-nourished Eyes: HARSHA, EOMI, Conjunctiva clear ENT: Erythema, Exudate Respiratory: Airway patent, Breath sounds clear, Breath sounds equal, Respirations nonlabored Cardiovascular: RRR, Pulses normal, No rub, No murmur GI/: Soft, Nontender, No masses, Bowel sounds normal, No Organomegaly Musculoskeletal: Normal strength, ROM intact, No edema, No calf tenderness Skin: Warm, Dry, Normal color Neurological: Sensation intact, Motor intact, Reflexes intact, Cranial nerves intact, Alert, Oriented Psychiatric: Affect appropriate, Mood appropriate Critical Care Note - Critical Care Note Total Time (mins): 0 Course - Course Vital Signs: Temp Pulse Resp BP Pulse Ox 02/21/18 10:21 98.4 F 115 H 20 127/86 95 Departure - Departure Time of Disposition: 10:43 Disposition: HOME SELF-CARE Discharge Problem: Sore throat symptom, Streptococcal sore throat Pharyngitis Qualifiers: Pharyngitis/tonsillitis etiology: unspecified etiology Qualified Code(s): J02.9 - Acute pharyngitis, unspecified Instructions: Pharyngitis (ED) Condition: Good Pt referred to PMD for follow-up: Yes IPMP verified?: No Additional Instructions: Please call your Family Physician as soon as possible to schedule a follow-up appointment. Prescriptions: Hydrocodone/Acetaminophen [Rudy 5-325 Tablet] 1 each PO Q6HR PRN #12 tablet PRN Reason: PAIN Amoxicillin 500 mg PO Q8HR #21 tablet Allergies/Adverse Reactions: Allergies latex Adverse Reaction (Verified 02/21/18 10:29) wasp venom Adverse Reaction (Severe, Uncoded 02/21/18 10:29) Difficulty Breathing KOBAN Adverse Reaction (Uncoded 02/21/18 10:29) Rash TAPE Adverse Reaction (Uncoded 02/21/18 10:29) Home Medications: Ambulatory Orders Albuterol Sulfate [Proair Hfa] 2 puff IH Q6H PRN 01/05/16 Epinephrine [Epipen Twinpak] 0.3 mg IM DIRECTED PRN 01/05/16 Venlafaxine HCl [Effexor Xr] 150 mg PO BID 08/29/16 Ibuprofen [Motrin] 600 mg PO QID PRN #30 tablet 02/14/17 Oxcarbazepine 600 mg PO TID 01/04/18 Cholecalciferol (Vitamin D3) [Vitamin D] 50,000 unit PO DIRECTED 02/05/18 Mirabegron [Myrbetriq] 50 mg PO DAILY 02/05/18 Pantoprazole Sodium 40 mg PO DAILY 02/05/18 Tizanidine HCl 4 mg PO TID PRN 02/05/18 Valacyclovir HCl [Valacyclovir] 500 mg PO Q12H PRN 02/05/18 Amoxicillin 500 mg PO Q8HR #21 tablet 02/21/18 Hydrocodone/Acetaminophen [Rudy 5-325 Tablet] 1 each PO Q6HR PRN #12 tablet 12/10
== END 2018-02-21 11:40 | disposition home or self-care (01) ==
LOC: ED 10:20
DX: J02.9 Acute pharyngitis, unspecified (principal); F17.210 Nicotine dependence, cigarettes, uncomplicated
CPT/HCPCS: 96372; 99282

== ENCOUNTER 2018-02-23 12:55 | Outpatient (CLI) | payer OTHER | END 2018-02-23 12:56 | disposition home or self-care (01) | LOC: FCC-LAB 12:55 | PROVIDERS: ATTEND Family Medicine | DX: J02.9 Acute pharyngitis, unspecified (principal) | CPT/HCPCS: 87651 ==

== ENCOUNTER 2018-07-18 15:56 | Outpatient (CLI) | payer OTHER | END 2018-07-18 15:57 | disposition home or self-care (01) | LOC: FCC-LAB 15:56 | PROVIDERS: ATTEND Family Medicine | DX: Z51.81 Encounter for therapeutic drug level monitoring (principal); F41.9 Anxiety disorder, unspecified; F12.90 Cannabis use, unspecified, uncomplicated | CPT/HCPCS: 80306 ==

== ENCOUNTER 2019-03-05 15:12 | Emergency (ER) ==
[2019-03-05 15:20] VITALS: BP 121/76; TEMP 98; BMI 28.3
[2019-03-05] MEDS ORDERED: VISTARIL INJ IM STA (16:11)
[2019-03-05] MEDS ORDERED: DECADRON 4 MG/ML SDV IM STA (16:12)
--- NOTE | 2019-03-05 16:24 | ED.PDOC ---
General ED Provider: Dr. CHERISE GRULLON Chief Complaint: Rash Stated Complaint: Diffuse rash and severe itching. PMH Scabies. Rash over torso , upper and lower extremities/doral surface. Diffuse Excoriation. Time Seen by Physician: 16:05 Mode of Arrival: Walk-In Information Source: Patient Exam Limitations: No limitations Nursing and Triage Documentation Reviewed and Agree: Yes Does patient meet sepsis criteria?: No If yes, has appropriate treatment been initiated?: No System Inflammatory Response Syndrome: Not Applicable Sepsis Protocol: For patient's 13 years and over: Temp is 96.8 and below OR 101 and greater Pulse >90 BPM Resp >20/minute Acutely Altered Mental Status Are patient's symptoms suggestive of a new infection, such as: -Pneumonia -Skin, Soft Tissue -Endocarditis -UTI -Bone, Joint Infection -Implantable Device -Acute Abdominal Infection -Wound Infection -Meningitis -Blood Stream Catheter Infection -Unknown Skin Complaint Exam - Skin Rash/Itching Complaint/Exam Onset/Duration: 2 wks Symptoms Are: Still present Initial Severity: Moderate Current Severity: Severe Potential Exposures: Reports: Scabies, Other (home less individuals) Aggravating: Reports: Heat Alleviating: Reports: None Associated Signs and Symptoms: Denies: Difficulty breathing, Fever, Chills Related History: Similar episode Skin Findings: Present: Urticaria, Maculae, Papules Differential Diagnoses: Other (scabies,. bed bugs ) Review of Systems - Review Of Systems Constitutional: Reports: No symptoms Eyes: Reports: No symptoms Ears, Nose, Mouth, Throat: Reports: No symptoms Respiratory: Reports: No symptoms Cardiac: Reports: No symptoms GI: Reports: No symptoms : Reports: No symptoms Musculoskeletal: Reports: No symptoms Skin: Reports: No symptoms Neurological: Reports: No symptoms Endocrine: Reports: No symptoms Hematologic/Lymphatic: Reports: No symptoms All Other Systems: Reviewed and Negative Past Medical History - Past Medical History Previously Healthy: Yes Endocrine: Reports: Dyslipidemia Cardiovascular: Reports: None Respiratory: Reports: COPD Hematological: Reports: None Gastrointestinal: Reports: GERD Genitourinary: Reports: None Neuro/Psych: Reports: Migraine (cluster headaches ), Anxiety, Depression, Bipolar Disorder Musculoskeletal: Reports: None, Arthritis Cancer: Reports: None Last Menstrual Period: menopause Other Pertinent Past Medical History: FIBROMYALGA, SOCIAL ANXIETY,CHRONIC FATIGUE - Surgical History General Surgical History: Reports: Orthopedic (LEFT KNEE SURGERY, ), Other ( 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, wisdom teethremoved, hemorrhoid surgery cluster headaches chol copd gerd depr anx bip) - Family History Family History: Reports: Unknown - Social History Smoking Status: Current every day smoker, Light tobacco smoker Hx Substance Use: No (MARIJUANA OCCASIONALLY) Alcohol Screening: Occasionally Physical Exam - Physical Exam Appearance: Ill-appearing Ill-appearing: Moderate Pain Distress: Moderate Eyes: HARSHA, EOMI, Conjunctiva clear, Conjunctiva inflammed ENT: Ears normal, Nose normal, Oropharynx normal Neck: Supple Respiratory: Airway patent, Breath sounds clear, Breath sounds equal, Respirations nonlabored Cardiovascular: RRR, Pulses normal, No rub, No murmur GI/: Soft, Nontender, No masses, Bowel sounds normal, No Organomegaly Musculoskeletal: Normal strength, ROM intact, No edema, No calf tenderness Skin: Warm, Dry Neurological: Sensation intact, Motor intact, Reflexes intact, Cranial nerves intact, Alert, Oriented Psychiatric: Affect appropriate, Mood appropriate Critical Care Note - Critical Care Note Total Time (mins): 0 Course - Course Vital Signs: Temp Pulse Resp BP Pulse Ox 03/05/19 15:13 98 F 88 20 121/76 97 Departure - Departure Time of Disposition: 16:40 Disposition: HOME SELF-CARE Discharge Problem: Rash in adult, Fibromyalgia Instructions: Acute Rash (ED), Scabies (ED) Condition: Fair Pt referred to PMD for follow-up: Yes IPMP verified?: No Additional Instructions: Wash bed clothing Take meds for itching and drying rash Treat other contacts Follow up prn Take hydroxyzine for itching Allergies/Adverse Reactions: Allergies latex Adverse Reaction (Verified 03/05/19 15:21) wasp venom Adverse Reaction (Severe, Uncoded 02/21/18 10:29) Difficulty Breathing coban Adverse Reaction (Uncoded 03/05/19 15:43) TAPE Adverse Reaction (Uncoded 02/21/18 10:29) Home Medications: Ambulatory Orders Hydroxyzine HCl 25 mg PO Q6-8H PRN #30 tablet 03/05/19 Permethrin [Elimite Cream] 1 applic TP ONCE #1 tube 03/05/19 Prednisone 10 mg PO DAILY #18 tablet 03/05/19 Disposition Discussed With: Patient
== END 2019-03-05 16:52 | disposition home or self-care (01) ==
LOC: ED 15:12
DX: R21 Rash and other nonspecific skin eruption (principal); M79.7 Fibromyalgia
CPT/HCPCS: 96372; 99282

== ENCOUNTER 2019-03-18 19:55 | Emergency (ER) | payer OTHER ==
[2019-03-18 20:08] VITALS: BP 118/77; TEMP 100; BMI 29.0
--- NOTE | 2019-03-18 20:19 | ED.PDOC ---
General ED Provider: Dr. CHERISE GRIFFITH-ER Chief Complaint: Abscess Stated Complaint: jarad got an infection Time Seen by Physician: 19:55 Mode of Arrival: Wheelchair Information Source: Patient Exam Limitations: No limitations Nursing and Triage Documentation Reviewed and Agree: Yes Does patient meet sepsis criteria?: No System Inflammatory Response Syndrome: Not Applicable Sepsis Protocol: For patient's 13 years and over: Temp is 96.8 and below OR 101 and greater Pulse >90 BPM Resp >20/minute Acutely Altered Mental Status Are patient's symptoms suggestive of a new infection, such as: -Pneumonia -Skin, Soft Tissue -Endocarditis -UTI -Bone, Joint Infection -Implantable Device -Acute Abdominal Infection -Wound Infection -Meningitis -Blood Stream Catheter Infection -Unknown Skin Complaint Exam - Skin/Soft Tissue Complaint/Exam Onset/Duration: 2 days Symptoms Are: Still present Timing: Constant Initial Severity: Mild Current Severity: Mild Location: posterior neck Character: Reports: Redness, Swelling, Raised Aggravating: Reports: None Alleviating: Reports: None Associated Signs and Symptoms: Reports: Tenderness Related Surgical History: Reports: None Recent Exposure to Others w/Similar Symptoms: No Skin Findings: Present: Erythema, Pustules Joint Tenderness Present: No Differential Diagnoses: Cellulitis, Infection Review of Systems - Review Of Systems Constitutional: Reports: No symptoms Eyes: Reports: No symptoms Ears, Nose, Mouth, Throat: Reports: No symptoms Respiratory: Reports: No symptoms Cardiac: Reports: No symptoms GI: Reports: No symptoms : Reports: No symptoms Musculoskeletal: Reports: No symptoms Skin: Reports: Lesions, Lumps Neurological: Reports: No symptoms Endocrine: Reports: No symptoms Hematologic/Lymphatic: Reports: No symptoms All Other Systems: Reviewed and Negative Past Medical History - Past Medical History Previously Healthy: Yes Endocrine: Reports: Dyslipidemia Cardiovascular: Reports: None Respiratory: Reports: COPD Hematological: Reports: None Gastrointestinal: Reports: GERD Genitourinary: Reports: None Neuro/Psych: Reports: Migraine (cluster headaches ), Anxiety, Depression, Bipolar Disorder Musculoskeletal: Reports: None, Arthritis Cancer: Reports: None Last Menstrual Period: UNKNOWN Other Pertinent Past Medical History: FIBROMYALGA, SOCIAL ANXIETY,CHRONIC FATIGUE - Surgical History General Surgical History: Reports: Orthopedic (LEFT KNEE SURGERY, ), Other ( 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, wisdom teethremoved, hemorrhoid surgery cluster headaches chol copd gerd depr anx bip) - Family History Family History: Reports: Unknown - Social History Smoking Status: Current every day smoker, Heavy tobacco smoker Hx Substance Use: No (MARIJUANA OCCASIONALLY) Alcohol Screening: None - Immunizations Tetanus Shot up to Date: Yes Physical Exam - Physical Exam Appearance: Well-appearing, No pain distress, Well-nourished Eyes: HARSHA, EOMI, Conjunctiva clear ENT: Ears normal, Nose normal, Oropharynx normal Neck: Supple Respiratory: Airway patent Cardiovascular: RRR, Pulses normal, No rub, No murmur GI/: Soft, Nontender, No masses, Bowel sounds normal, No Organomegaly Musculoskeletal: Normal strength, ROM intact, No edema, No calf tenderness Skin: Warm Neurological: Sensation intact, Motor intact, Reflexes intact, Cranial nerves intact, Alert, Oriented Psychiatric: Affect appropriate, Mood appropriate Critical Care Note - Critical Care Note Total Time (mins): 0 Course - Course Vital Signs: Temp Pulse Resp BP Pulse Ox 03/18/19 19:56 100 F H 114 H 20 118/77 95 Departure - Departure Time of Disposition: 20:19 Disposition: HOME SELF-CARE Discharge Problem: Impetigo Instructions: Impetigo (ED) Condition: Good Pt referred to PMD for follow-up: Yes IPMP verified?: No Additional Instructions: clindamycin 300mg qid x 7 days---bactroban ointment apply to the rash bid ---f/ u with pcp Allergies/Adverse Reactions: Allergies latex Adverse Reaction (Verified 03/18/19 20:07) wasp venom Adverse Reaction (Severe, Uncoded 03/18/19 20:07) Difficulty Breathing coban Adverse Reaction (Uncoded 03/18/19 20:07) TAPE Adverse Reaction (Uncoded 03/18/19 20:07) Home Medications: Ambulatory Orders Hydroxyzine HCl 25 mg PO Q6-8H PRN #30 tablet 03/05/19 Epinephrine [Epipen] 1 each SQ DIRECTED PRN 03/18/19 Permethrin [Elimite Cream] 1 applic TP ONCE PRN 03/18/19 Disposition Discussed With: Patient
== END 2019-03-18 20:25 | disposition home or self-care (01) ==
LOC: ED 19:55
DX: L01.00 Impetigo, unspecified (principal); F17.210 Nicotine dependence, cigarettes, uncomplicated
CPT/HCPCS: 99282

== ENCOUNTER 2019-04-15 16:49 | Emergency (ER) | payer OTHER ==
[2019-04-15 16:58] VITALS: BP 132/85; TEMP 98.2; BMI 29.8
[2019-04-15] MEDS ORDERED: SODIUM CHLORIDE 1,000 ML IV STA (17:37)
--- NOTE | 2019-04-15 18:09 | ED.PDOC ---
General <SAÚL OLIVAS - Last Filed: 04/15/19 20:39> Stated Complaint: chest pain Time Seen by Physician: 17:00 Mode of Arrival: Walk-In Information Source: Patient Exam Limitations: No limitations Nursing and Triage Documentation Reviewed and Agree: Yes Does patient meet sepsis criteria?: No System Inflammatory Response Syndrome: Not Applicable <DARIOBRENDAN - Last Filed: 04/17/19 07:21> ED Provider: Dr. BRENDAN BISHOP Chief Complaint: Chest Pain Sepsis Protocol: For patient's 13 years and over: Temp is 96.8 and below OR 101 and greater Pulse >90 BPM Resp >20/minute Acutely Altered Mental Status Are patient's symptoms suggestive of a new infection, such as: -Pneumonia -Skin, Soft Tissue -Endocarditis -UTI -Bone, Joint Infection -Implantable Device -Acute Abdominal Infection -Wound Infection -Meningitis -Blood Stream Catheter Infection -Unknown Cardiovascular Complaint Exam - Chest Pain Complaint/Exam Onset: Gradual Duration: 2 days Symptoms Are: Still present Timing: Intermittent Initial Severity: Mild Current Severity: Mild Location: Reports: Discrete Pain Radiates: Reports: Back Character: Reports: Dull Alleviating: Reports: None Associated Signs and Symptoms: Reports: Cough. Denies: Diaphoresis, Nausea, Vomiting, Fever, Palpitations, Hemoptysis, Back pain, Abdominal pain, Dizziness , Short of air, Calf pain, Calf swelling Related History: Reports: Similar episode Related Surgical History: Reports: None History of Healthcare-Acquired Pneumonia: Reports: No AMI/ACS Risk Factors: Reports: Hypertension TAD Risk Factors: Reports: Hypertension Pulmonary Embolism Risk Factors: Reports: None Prior Care for this Complaint: No Recent Stress Test: No Recent Echo/LV Function: No JVD Present: No Subcutaneous Emphysema Present: No Diminshed Breath Sounds: No Reproducible Chest Wall Pain: No Bilateral Pulses Present: No Unequal Pulses Noted: No If Risk Factors for AMI/ACS Consider: EKG Differential Diagnoses: Chest Wall Pain, GI Diseasae, Lower Resp. Infection Quality Indicators For Acute PA or Cardiac Chest Pain: EKG in 10min. Quality Indicator For Non-Traumatic Chest Pain/Syncope: EKG Performed <BRENDAN BISHOP - Last Filed: 04/17/19 07:21> Review of Systems - Review Of Systems Constitutional: Reports: No symptoms Eyes: Reports: No symptoms Ears, Nose, Mouth, Throat: Reports: No symptoms Respiratory: Reports: Cough Cardiac: Reports: Chest pain GI: Reports: No symptoms : Reports: No symptoms Musculoskeletal: Reports: No symptoms Skin: Reports: No symptoms Neurological: Reports: No symptoms Endocrine: Reports: No symptoms Hematologic/Lymphatic: Reports: No symptoms All Other Systems: Reviewed and Negative <BRENDAN BISHOP - Last Filed: 04/17/19 07:21> Past Medical History - Past Medical History Previously Healthy: Yes Endocrine: Reports: Dyslipidemia Cardiovascular: Reports: Other (p.e.) Respiratory: Reports: COPD Hematological: Reports: None Gastrointestinal: Reports: GERD Genitourinary: Reports: None Neuro/Psych: Reports: Migraine (cluster headaches ), Anxiety, Depression, Bipolar Disorder Musculoskeletal: Reports: None, Arthritis Cancer: Reports: None Last Menstrual Period: n/a Other Pertinent Past Medical History: FIBROMYALGA, SOCIAL ANXIETY,CHRONIC FATIGUE - Surgical History General Surgical History: Reports: Orthopedic (LEFT KNEE SURGERY, ), Other ( 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, wisdom teethremoved, hemorrhoid surgery cluster headaches chol copd gerd depr anx bip) - Family History Family History: Reports: Unknown - Social History Smoking Status: Current every day smoker, Light tobacco smoker Hx Substance Use: No (MARIJUANA OCCASIONALLY) Alcohol Screening: None <BRENDAN BISHOP - Last Filed: 04/17/19 07:21> Physical Exam - Physical Exam Appearance: Well-appearing, No pain distress, Well-nourished Eyes: HARSHA, EOMI, Conjunctiva clear ENT: Ears normal, Nose normal, Oropharynx normal Respiratory: Airway patent, Breath sounds clear, Breath sounds equal, Respirations nonlabored Cardiovascular: RRR, Pulses normal, No rub, No murmur GI/: Soft, Nontender, No masses, Bowel sounds normal, No Organomegaly Musculoskeletal: Normal strength, ROM intact, No edema, No calf tenderness Skin: Warm, Dry, Normal color Neurological: Sensation intact, Motor intact, Reflexes intact, Cranial nerves intact, Alert, Oriented Psychiatric: Affect appropriate, Mood appropriate <MARIBELMATTBRENDAN - Last Filed: 04/17/19 07:21> Interpretation - Radiology Interpretation Radiology Interpretation By: Radiologist Radiology Results: Negative Exam Interpreted: CT Scan (chest for PE ) <SAÚL OLIVAS - Last Filed: 04/15/19 20:39> - Linseed Oil Press Tender Rate: Normal Rhythm: Sinus Ectopy: None - EKG Interpretation Rate: Normal Rhythm: Sinus Ectopy: None Willard: NL ST Segment: Normal (incomplete r.b.b.b) <BRENDAN BISHOP - Last Filed: 04/17/19 07:21> Physician Notification - Case Discussed Physician Notified: lawrence Time of Notification: 19:00 <BRENDAN BISHOP - Last Filed: 04/17/19 07:21> Critical Care Note - Critical Care Note Total Time (mins): 0 <BRENDAN BISHOP - Last Filed: 04/17/19 07:21> Course - Course Hematology/Chemistry: 04/15/19 17:47 04/15/19 17:47 <SAÚL OLIVAS - Last Filed: 04/15/19 20:39> - Course Hematology/Chemistry: 04/15/19 17:47 04/15/19 17:47 <BRENDAN BISHOP - Last Filed: 04/17/19 07:21> - Course Orders, Labs, Meds: Lab Review 04/15/19 04/15/19 04/15/19 17:45 17:47 17:47 WBC 7.01 RBC 3.86 L Hgb 12.6 Hct 37.8 MCV 97.9 MCH 32.6 H MCHC 33.3 RDW Coeff of Abner 13.6 Plt Count 255 Immature Gran % (Auto) 0.1 Neut % (Auto) 57.0 Lymph % (Auto) 28.8 Dade % (Auto) 9.8 Eos % (Auto) 3.6 Baso % (Auto) 0.7 Immature Gran # (Auto) 0.0 Neut # (Auto) 4.0 Lymph # (Auto) 2.0 Dade # (Auto) 0.7 Eos # (Auto) 0.3 Baso # (Auto) 0.1 PT INR APTT Sodium 141.4 Potassium 3.65 Chloride 103.4 Carbon Dioxide 27.2 Anion Gap 14.45 BUN 19.0 H Creatinine 0.92 Estimated GFR (MDRD) 64.00 BUN/Creatinine Ratio 20.65 Glucose 99.8 Calcium 9.56 Total Bilirubin 1.31 H AST 23.3 ALT 21.8 Alkaline Phosphatase 74.4 Total Creatine Kinase 63.5 Troponin I < 0.012 Total Protein 7.94 Albumin 4.34 Globulin 3.60 Albumin/Globulin Ratio 1.20 04/15/19 17:47 WBC RBC Hgb Hct MCV MCH MCHC RDW Coeff of Abner Plt Count Immature Gran % (Auto) Neut % (Auto) Lymph % (Auto) Dade % (Auto) Eos % (Auto) Baso % (Auto) Immature Gran # (Auto) Neut # (Auto) Lymph # (Auto) Dade # (Auto) Eos # (Auto) Baso # (Auto) PT 9.6 INR 0.96 APTT 22.5 L Sodium Potassium Chloride Carbon Dioxide Anion Gap BUN Creatinine Estimated GFR (MDRD) BUN/Creatinine Ratio Glucose Calcium Total Bilirubin AST ALT Alkaline Phosphatase Total Creatine Kinase Troponin I Total Protein Albumin Globulin Albumin/Globulin Ratio Orders Category Date Time Status EKG-(ED ONLY) Stat CARDIO 04/15/19 17:36 Completed NPO REMINDER: IMAGING ONCE CARE 04/15/19 17:37 Completed ED IV/MEDIPORT/POWERPORT .ONCE EMERGENCY 04/15/19 17:36 Active CBC W/ AUTO DIFF Stat LAB 04/15/19 17:47 Completed CK [CREATINE KINASE] Stat LAB 04/15/19 17:45 Completed COMPREHENSIVE METABOLIC PANEL Stat LAB 04/15/19 17:47 Completed PARTIAL THROMBOPLASTIN TIME Stat LAB 04/15/19 17:47 Completed PT WITH INR Stat LAB 04/15/19 17:47 Completed TROPONIN I Stat LAB 04/15/19 17:45 Completed 0.9 % Sodium Chloride [Saline Flush] MEDS 04/15/19 17:36 Discontinued 1 syr IVF PRN PRN Sodium Chloride 0.9% [Sodium Chloride] 1,000 ml MEDS 04/15/19 17:37 Discontinued IV 125 mls/hr CT CHEST PE PROTOCOL Stat RADS 04/15/19 17:36 Completed Medications Discontinued Medications Generic Name Dose Route Start Last Admin Trade Name Freq PRN Reason Stop Dose Admin Sodium Chloride 1,000 mls @ 125 mls/hr 04/15/19 17:37 04/15/19 18:03 Sodium Chloride IV 04/16/19 01:36 125 mls/hr .Q8H STA Administration Sodium Chloride 1 syr 04/15/19 17:36 04/15/19 18:03 Saline Flush IVF 1 syr PRN PRN Administration To flush IV Vital Signs: Temp Pulse Resp BP Pulse Ox 04/15/19 16:51 98.2 F 110 H 16 132/85 99 ROSENDO Risk Score: Risk Score Odds of by 30D 0 0.1 (0.1-0.2) 1 0.3 (0.2-0.3) 2 0.4 (0.3-0.5) 3 0.7 (0.6-0.9) 4 1.2 (1.0-1.5) 5 2.2 (1.9-2.6) 6 3.0 (2.5-3.6) 7 4.8 (3.8-6.1) Departure - Departure Time of Disposition: 20:00 <SAÚL OLIVAS - Last Filed: 04/15/19 20:39> - Departure Pt referred to PMD for follow-up: Yes IPMP verified?: No Disposition Discussed With: Patient <BRENDAN BISHOP - Last Filed: 04/17/19 07:21> - Departure Disposition: HOME SELF-CARE Discharge Problem: Chest pain Chest pain Qualifiers: Chest pain type: unspecified Qualified Code(s): R07.9 - Chest pain, unspecified Instructions: Chest Pain (ED) Condition: Fair Allergies/Adverse Reactions: Allergies latex Adverse Reaction (Verified 03/18/19 20:07) wasp venom Adverse Reaction (Severe, Uncoded 03/18/19 20:07) Difficulty Breathing coban Adverse Reaction (Uncoded 03/18/19 20:07) TAPE Adverse Reaction (Uncoded 03/18/19 20:07) Home Medications: Ambulatory Orders 1 [No Reported Medications] 04/15/19
--- NOTE | 2019-04-15 19:36 | CT ---
EXAM: CTA chest HISTORY: Chest pain COMPARISON: CTA chest 10/14/2017 FINDINGS: Contiguous axial images obtained through the thorax following intravenous contrast utilizi ng 5-mm collimation. Sagittal and coronal reconstructions were imaged and reviewed.. The thoracic i nlet is unremarkable. There is no hilar mediastinal lymphadenopathy. The heart is normal in size wi thout pericardial effusion. Calcified lymph nodes are seen within the left hilum. There is no evide nce of pulmonary embolus.. Stable linear scarring is noted at the right apex. There is a stable spi culated 1.5 nodule within the left upper lobe.. Previously noted right-sided nodule is not identifie d.. Benign granulomatous changes are seen within the lingula with adjacent scarring. No consolidati on or effusion.. No acute findings within visualized upper abdomen.. Visualized bony structures rev eals no lytic or blastic lesions. IMPRESSION: No evidence of pulmonary embolus. Stable appearing scarring and pulmonary nodule
== END 2019-04-15 21:14 | disposition home or self-care (01) ==
LOC: ED 16:49
DX: R07.9 Chest pain, unspecified (principal); I10 Essential (primary) hypertension; R05 Cough; E78.5 Hyperlipidemia, unspecified; Z86.711 Personal history of pulmonary embolism; F17.210 Nicotine dependence, cigarettes, uncomplicated; J44.9 Chronic obstructive pulmonary disease, unspecified; K21.9 Gastro-esophageal reflux disease without esophagitis
CPT/HCPCS: 36415; 80053; 82550; 84484; 85025; 85610; 85730; 93005; 93010; 96360; 96361; 99284